=== PATIENT | female | born 1970 | race Caucasian/White ===

== ENCOUNTER 2016-10-17 20:29 | Emergency (ER) | payer SELFPAY ==
--- NOTE | 2016-10-19 01:26 | ER ---
ADMIT: 10/17/2016 RM/LOC: ER [facility] MR#: [id number] [facility] [address] [place], [place] [id number] KENDRA VASQUEZ [address] [place] [address] Emergency Room Report SEX: F AGE: 46 : 1970 DATE: 10/17/2016 TIME: 2028. Please refer to my T-sheet for complete H and P. HISTORY OF PRESENT ILLNESS: Briefly, the patient is a 46-year-old, who comes in with left ankle pain. She rolled it in the park, felt a pop. She has been having trouble walking on it since. It happened several hours ago. PHYSICAL EXAMINATION: VITAL SIGNS: Stable. EXTREMITIES: Her left ankle has tenderness over the lateral malleolus over the anterior talofibular ligament. On the lateral aspect, no other abnormalities, no pain over the calcaneus, no pain over the base of 5th, no pain over the medial malleolus, and no pain over the proximal fibula. EMERGENCY DEPARTMENT COURSE: X-ray showed no obvious fracture. She was placed in an [place]. Given 2 [place]. Ready for discharge. Had her drive home. ASSESSMENT: Left anterior talofibular ankle sprain. PLAN: Rest, ice, elevate. Weight bear as tolerated. Tylenol or Motrin. Return if worse. Follow up with [facility]. Terence Perez MD/ wilber JOB #: [id number] CC: Terence Perez MD, Attending Physician
== END 2016-10-17 21:25 | disposition home or self-care (01) ==
LOC: ER 20:29
DX: S93.492A Sprain of other ligament of left ankle, initial encounter (principal); Z90.710 Acquired absence of both cervix and uterus; Z90.89 Acquired absence of other organs; X50.1XXA Overexertion from prolonged static or awkward postures, initial encounter; Y92.830 Public park as the place of occurrence of the external cause